=== PATIENT | female | born 1945 | race Caucasian/White ===

== ENCOUNTER 2020-05-24 10:56 | Outpatient (CLI) | payer MEDICARE ==
--- NOTE | 2020-05-25 16:19 | MMO ---
Bilateral MAMMO Bilat Screen [facility]. CLINICAL HISTORY: Patient is 74 years old and is seen for screening. The patient has no family history of breast cancer. The patient has no personal history of cancer. VIEWS: The views performed were: bilateral craniocaudal with tomosynthesis and bilateral mediolateral oblique with tomosynthesis. FILMS COMPARED: The present examination has been compared to prior imaging studies performed at 02/11/2018. This study has been interpreted with the assistance of computer-aided detection. MAMMOGRAM FINDINGS: There are scattered fibroglandular densities. There are no suspicious masses, suspicious calcifications, or new areas of architectural distortion. IMPRESSION: THERE IS NO MAMMOGRAPHIC EVIDENCE OF MALIGNANCY. A ROUTINE FOLLOW-UP MAMMOGRAM IN 1 YEAR IS RECOMMENDED. THE RESULTS OF THIS EXAM WERE SENT TO THE PATIENT. ACR BI-RADS Category 1 - Negative MAMMOGRAPHY NOTE: 1. A negative mammogram report should not delay a biopsy if a dominant of clinically suspicious mass is present. 2. Approximately 10% to 15% of breast cancers are not detected by mammography. 3. Adenosis and dense breasts may obscure an underlying neoplasm. Reported by: RUSTY ASHBY MD Electonically Signed: [id number]
== END 2020-05-24 10:57 | disposition home or self-care (01) ==
LOC: BICMAMMO 10:56
PROVIDERS: ATTEND Family Medicine
DX: Z12.31 Encounter for screening mammogram for malignant neoplasm of breast (principal)
CPT/HCPCS: 77063; 77067

== ENCOUNTER 2022-12-20 09:55 | Outpatient (CLI) | payer MEDICARE | END 2022-12-20 09:56 | disposition home or self-care (01) | LOC: LABBT 09:55 | PROVIDERS: ATTEND Orthopaedic Surgery | DX: Z01.818 Encounter for other preprocedural examination (principal); M17.12 Unilateral primary osteoarthritis, left knee | CPT/HCPCS: 71046; 93005; 93010 ==

== ENCOUNTER 2022-12-24 06:38 | Inpatient (IN) | payer MEDICARE ==
[2022-12-20 10:44] VITALS: BMI 32.6
[2022-12-20 11:55] LABS: Bilirubin Neg (Negative); Blood, Urine Negative (Negative); Clarity Clear (Clear); Glucose, Urine (Dipstick) Normal (Negative); Ketone, Urine Negative (Negative); Leukocyte Negative (Negative); Nitrite Negative (Negative); Protein, Urine (Dipstick) Negative (Neg-Trace); Urobilinogen Normal mg/dL (Less than 2)
[2022-12-20 11:57] LABS: #Eosinphils 0.1 10x3/uL (0.0-0.5); #Monocytes 0.4 10x3/uL (0.0-1.1); #Neutrophils 3.6 10x3/uL (1.5-8.4); %Basophils 0.6 % (0.0-2.0); %Eosinophils 2.3 % (0.0-6.0); %Lymphocytes 18.2 % (18.0-47.0); %Monocytes 7.4 % (0.0-10.0); %Neutrophils 71.1 % (40.0-75.0); Hematocrit 32.7 % (34.9-44.5); Hemoglobin 11.1 g/dL (12.0-15.5); Mean Corpuscular HGB CONC 33.9 g/dL (32.0-36.0); Mean Corpuscular Hemoglobin 29.6 pg (27.0-33.0); Mean Corpuscular Volume 87.2 fl (81.6-98.3); Mean Platelet Volume 10.3 fl (7.4-10.4); Platelet Count 251 10x3/uL (150-450); RBC Distribution Width 13.2 % (11.5-14.5); Red Blood Cell (RBC) Count 3.75 10x6/uL (3.90-5.03); White Blood Cell (WBC) Count 5.1 10x3/uL (3.5-10.5)
[2022-12-20 12:21] LABS: Prothrombin Time 10.6 sec (9.5-12.1)
[2022-12-20 12:35] LABS: Anion Gap 16 mmol/L (10-20); BUN (Urea Nitrogen) 25 mg/dL (9.8-20.1); Calc. Creatinine Clearance 0 mL/min (70-130); Calcium 9.8 mg/dL (7.8-10.44); Carbon Dioxide 24 mmol/L (23-31); Chloride 103 mmol/L (98-107); Estimated GFR 67; Glucose 101 mg/dL (83-110); Potassium 4.3 mmol/L (3.5-5.1); Sodium 139 mmol/L (136-145)
[2022-12-24] MEDS ORDERED: Sodium Chloride 0.9% 100 ML ONE ×2 (07:45→09:27)
[2022-12-24] MEDS ORDERED: Tranexamic Acid 1,000 MG/10 ML VIAL ONE ×2 (07:45→11:39)
[2022-12-24] MEDS ORDERED: Vancomycin 1 GM/200 ML (FROZEN) BAG ONE (07:45)
[2022-12-24] MEDS ORDERED: fentaNYL 50 mcg/mL 1 mL Vial ONE ×2 (08:18→12:50)
[2022-12-24] MEDS ORDERED: Bupivacaine PF 0.5% 30 ML VIAL ONE ×2 (08:18→09:18)
[2022-12-24] MEDS ORDERED: Midazolam HCl 2 mg/2 ml Vial ONE (08:18)
[2022-12-24] MEDS ORDERED: Ropivacaine 0.2% 550 ML 550 ML NERVE BLCK SCH (09:15)
[2022-12-24] MEDS ORDERED: Zolpidem Tartrate 5 MG TAB PO PRN ×2 (09:15→11:19)
[2022-12-24] MEDS ORDERED: Ondansetron PF 4 MG/2 ML Vial IVP PRN ×2 (09:15→11:19)
[2022-12-24] MEDS ORDERED: Promethazine HCl 25 MG/ML VIAL IM PRN ×2 (09:15→11:19)
[2022-12-24] MEDS ORDERED: fentaNYL 50 mcg/mL 1 mL Vial SLOW IVP PRN (09:15)
[2022-12-24] MEDS ORDERED: HYDROcodone/Acetaminophen 10/325 mg Tablet PO PRN (09:15)
[2022-12-24] MEDS ORDERED: fentaNYL PF 100 MCG/2 ML SYRINGE ONE (09:21)
[2022-12-24] MEDS ORDERED: CEFAZOLIN 2 GM VIAL ONE (09:27)
[2022-12-24] MEDS ORDERED: Ondansetron PF 4 MG/2 ML Vial ONE (09:45)
[2022-12-24] MEDS ORDERED: PHENYLEPHRINE-NS 100 MCG/ML 10 ML SYRINGE ONE (09:45)
[2022-12-24] MEDS ORDERED: Bupivacaine HCl 0.5%/Epinephrine 1:200,000/PF 30 ml Vial ONE (09:45)
[2022-12-24] MEDS ORDERED: Dexamethasone 20 MG/5 ML VIAL ONE (09:45)
[2022-12-24] MEDS ORDERED: Glycopyrrolate 0.2 MG/ML 5 ML SYRINGE ONE (09:45)
[2022-12-24] MEDS ORDERED: ePHEDrine Sulfate 50 MG/10 ML VIAL ONE (09:45)
[2022-12-24] MEDS ORDERED: PROPOFOL 200 MG/20 ML VIAL ONE (09:45)
[2022-12-24] MEDS ORDERED: Acetaminophen 325 MG TAB PO PRN (11:19)
[2022-12-24] MEDS ORDERED: diphenhydrAMINE 25 MG CAP PO PRN (11:19)
[2022-12-24] MEDS ORDERED: Tranexamic Acid 1,000 MG in Sodium Chloride 0.9% 100 ML IVPB SCH (11:30)
[2022-12-24] MEDS ORDERED: Ketorolac Tromethamine 30 MG/ML VIAL IVP SCH ×2 (12:00→14:00)
[2022-12-24] MEDS: Sodium Chloride 0.9% 1,000 ML IV SCH ×2 (13:54→21:41)
[2022-12-24] MEDS: CEFAZOLIN 2 GM in Sodium Chloride 0.9% 100 ML IVPB SCH (16:45)
[2022-12-24] MEDS ORDERED: Vancomycin 1 GM in Premix Bag 1 BAG IVPB SCH (21:00)
[2022-12-24] MEDS: Ketorolac Tromethamine 30 MG/ML VIAL IVP SCH (21:36)
[2022-12-24] MEDS: Aspirin 81 mg Enteric Coated Tablet PO SCH (21:37)
[2022-12-24] MEDS: hydrALAZINE 25 MG TAB PO SCH (21:37)
[2022-12-24] MEDS: Carvedilol 25 MG TAB PO SCH (21:37)
[2022-12-24] MEDS: Lisinopril 20 MG TAB PO SCH (21:38)
[2022-12-24] MEDS: traMADol HCl 50 MG TAB PO PRN (22:33)
[2022-12-24] MEDS: HYDROcodone/Acetaminophen 10/325 mg Tablet PO PRN (23:37)
[2022-12-25] MEDS: Ketorolac Tromethamine 30 MG/ML VIAL IVP SCH ×4 (01:55→21:48)
[2022-12-25] MEDS: CEFAZOLIN 2 GM in Sodium Chloride 0.9% 100 ML IVPB SCH (01:56)
[2022-12-25 05:48] LABS: Hematocrit 26.8 % (36.0-47.0); Mean Corpuscular HGB CONC 33.6 g/dL (32.0-36.0); Mean Corpuscular Hemoglobin 30.3 pg (27.0-31.0); Mean Corpuscular Volume 90.2 fl (78.0-98.0); Mean Platelet Volume 9.9 fL (7.4-10.4); Platelet Count 192 10x3/uL (130-400); RBC Distribution Width 13.4 % (11.5-14.5); Red Blood Cell (RBC) Count 2.97 mill/uL (4.20-5.40); White Blood Cell (WBC) Count 9.5 10x3/uL (4.8-10.8)
[2022-12-25] MEDS: Sodium Chloride 0.9% 1,000 ML IV SCH ×2 (07:57→16:41)
[2022-12-25] MEDS ORDERED: Aspirin Chewable 81 MG TAB PO SCH (09:00)
[2022-12-25] MEDS: Carvedilol 25 MG TAB PO SCH ×2 (09:18→21:49)
[2022-12-25] MEDS: Ferrous Gluconate 324 MG TAB PO SCH ×2 (09:18→16:40)
[2022-12-25] MEDS: Senokot S 8.6-50 MG TAB PO SCH ×2 (09:19→21:48)
[2022-12-25] MEDS: Multivitamin W/ Minerals 1 TAB PO SCH (09:19)
[2022-12-25] MEDS: Aspirin 81 mg Enteric Coated Tablet PO SCH ×2 (09:19→21:49)
[2022-12-25] MEDS: Sertraline 100 MG TAB PO SCH (09:20)
[2022-12-25] MEDS: Atorvastatin Calcium 40 MG TAB PO SCH (09:20)
[2022-12-25] MEDS: hydrALAZINE 25 MG TAB PO SCH ×2 (09:20→21:49)
[2022-12-25] MEDS: Hydrochlorothiazide 25 MG TAB PO SCH (09:20)
[2022-12-25] MEDS: Lisinopril 20 MG TAB PO SCH ×2 (09:20→21:49)
[2022-12-25] MEDS: HYDROcodone/Acetaminophen 10/325 mg Tablet PO PRN (21:46)
[2022-12-25] MEDS: Mag-Al 1200 mg/1200 mg/30 ML UDCUP PO PRN (21:48)
[2022-12-26] MEDS: Ketorolac Tromethamine 30 MG/ML VIAL IVP SCH ×2 (02:28→09:38)
[2022-12-26] MEDS: Sodium Chloride 0.9% 1,000 ML IV SCH ×2 (04:39→13:40)
[2022-12-26 06:40] LABS: Hematocrit 25.5 % (36.0-47.0); Hemoglobin 8.6 g/dL (12.0-16.0); Mean Corpuscular HGB CONC 33.7 g/dL (32.0-36.0); Mean Corpuscular Hemoglobin 30.5 pg (27.0-31.0); Mean Corpuscular Volume 90.4 fl (78.0-98.0); Mean Platelet Volume 9.6 fL (7.4-10.4); Platelet Count 154 10x3/uL (130-400); RBC Distribution Width 13.5 % (11.5-14.5); Red Blood Cell (RBC) Count 2.82 mill/uL (4.20-5.40); White Blood Cell (WBC) Count 8.3 10x3/uL (4.8-10.8)
[2022-12-26] MEDS: Ferrous Gluconate 324 MG TAB PO SCH ×2 (09:37→16:28)
[2022-12-26] MEDS: Aspirin 81 mg Enteric Coated Tablet PO SCH ×2 (09:38→21:00)
[2022-12-26] MEDS: Multivitamin W/ Minerals 1 TAB PO SCH (09:38)
[2022-12-26] MEDS: hydrALAZINE 25 MG TAB PO SCH ×2 (09:39→21:00)
[2022-12-26] MEDS: Hydrochlorothiazide 25 MG TAB PO SCH (09:39)
[2022-12-26] MEDS: Sertraline 100 MG TAB PO SCH (09:39)
[2022-12-26] MEDS: Lisinopril 20 MG TAB PO SCH ×2 (09:39→21:00)
[2022-12-26] MEDS: Carvedilol 25 MG TAB PO SCH ×2 (09:39→21:00)
[2022-12-26] MEDS: Senokot S 8.6-50 MG TAB PO SCH ×2 (09:39→21:00)
[2022-12-26] MEDS: Atorvastatin Calcium 40 MG TAB PO SCH (09:40)
[2022-12-26] MEDS: traMADol HCl 50 MG TAB PO PRN (13:44)
[2022-12-26] MEDS: Mag-Al 1200 mg/1200 mg/30 ML UDCUP PO PRN (14:48)
[2022-12-26] MEDS: HYDROcodone/Acetaminophen 10/325 mg Tablet PO PRN (20:58)
[2022-12-27] MEDS: Sodium Chloride 0.9% 1,000 ML IV SCH (03:36)
[2022-12-27 06:34] LABS: Hematocrit 25.1 % (36.0-47.0); Hemoglobin 8.6 g/dL (12.0-16.0); Mean Corpuscular HGB CONC 34.3 g/dL (32.0-36.0); Mean Corpuscular Volume 87.5 fl (78.0-98.0); Mean Platelet Volume 9.9 fL (7.4-10.4); Platelet Count 168 10x3/uL (130-400); RBC Distribution Width 13.3 % (11.5-14.5); Red Blood Cell (RBC) Count 2.87 mill/uL (4.20-5.40); White Blood Cell (WBC) Count 7.6 10x3/uL (4.8-10.8)
[2022-12-27] MEDS: hydrALAZINE 25 MG TAB PO SCH (08:27)
[2022-12-27] MEDS: Lisinopril 20 MG TAB PO SCH (08:27)
[2022-12-27] MEDS: Ferrous Gluconate 324 MG TAB PO SCH (08:28)
[2022-12-27] MEDS: Hydrochlorothiazide 25 MG TAB PO SCH (08:28)
[2022-12-27] MEDS: Senokot S 8.6-50 MG TAB PO SCH (08:28)
[2022-12-27] MEDS: Aspirin 81 mg Enteric Coated Tablet PO SCH (08:28)
[2022-12-27] MEDS: Sertraline 100 MG TAB PO SCH (08:28)
[2022-12-27] MEDS: Atorvastatin Calcium 40 MG TAB PO SCH (08:28)
[2022-12-27] MEDS: Multivitamin W/ Minerals 1 TAB PO SCH (08:29)
[2022-12-27] MEDS: Carvedilol 25 MG TAB PO SCH (08:29)
[2022-12-27] MEDS: traMADol HCl 50 MG TAB PO PRN ×2 (08:33)
[2022-12-27 09:28] VITALS: BP 150/71; TEMP 97.6
== END 2022-12-27 12:25 | disposition home or self-care (01) | DRG 470 ==
LOC: SDC 06:38 → EDSTATUS 10:00 → SURG B 13:49 → OBSVTOIN 12-26 17:00
PROVIDERS: ADMIT Orthopaedic Surgery; ATTEND Orthopaedic Surgery
PROC: 0SRD0J9 Replacement of Left Knee Joint with Synthetic Substitute, Cemented, Open Approach (ICD-10-PCS; principal; 2022-12-26)
DX: M17.12 Unilateral primary osteoarthritis, left knee (principal); E78.00 Pure hypercholesterolemia, unspecified; I10 Essential (primary) hypertension; Z98.890 Other specified postprocedural states; Z88.1 Allergy status to other antibiotic agents
CPT/HCPCS: 36415; 71045; 80048; 81003; 85025; 85027; 85610; 86850; 86900; 86901; 87081; A4306; C1776; J1100; J1885; J2250; J2405; J2704; J2795; J3010; J3370-JW; J3490; J7050; S0020

== ENCOUNTER 2023-01-31 15:49 | Emergency (ER) | payer MEDICARE | END 2023-01-31 18:24 | disposition home or self-care (01) | LOC: ERS 15:49 | DX: R22.42 Localized swelling, mass and lump, left lower limb (principal); I10 Essential (primary) hypertension; K21.9 Gastro-esophageal reflux disease without esophagitis; E78.5 Hyperlipidemia, unspecified ==